=== PATIENT | male | born 1965 | race Caucasian/White ===

== ENCOUNTER 2022-10-16 22:07 | Inpatient (IN) | payer OTHER ==
--- OUTSIDE RECORDS SUMMARY | 2022-10-16 22:10 | XMS REPORT | Continuity of Care Document ---
:1965 Author Organization [facility] t Address [address] [place] [address] [place] [id number] Care Team Providers Name Role Phone Julia Sandoval Attending Clinician Unavailable Problems This patient has no known problems. Allergies, Adverse Reactions, Alerts This patient has no known allergies or adverse reactions. Medications This patient has no known medications. Procedures This patient has no known procedures. Encounters Start End Encounter Admission Attending Care Care Encounter Source Date/Time Date/Time Type Type Clinicians Facility Department ID 2022-09-24 Outpatient GAGAN Sandoval [facility] [id number] Common 08:35:00 Julia [id number] [facility] Results This patient has no known results.
[2022-10-16 23:27] LABS: Urine Blood Trace-intact (Negative); Urine Glucose Negative (Negative); Urine Protein Trace (Negative); Urine pH 5.5 (5.0-7.0)
[2022-10-16 23:36] LABS: Protime INR 1.08
[2022-10-16] MEDS ORDERED: NA CHLORIDE 0.9% 500 ML ONE (23:43)
[2022-10-16 23:51] LABS: Urine Bacteria None Seen /HPF (<20); Urine Bilirubin NEGATIVE (Negative); Urine Blood Negative (Negative); Urine Clarity Clear (Clear); Urine Color Light-Yellow (Yellow); Urine Glucose NEGATIVE (Negative); Urine Mucus 1+ /HPF (None Seen); Urine Protein TRACE (Negative); Urine RBC None Seen /HPF (None Seen); Urine Urobilinogen Normal (Normal)
[2022-10-16 23:51] LABS: Albumin 3.4 g/dL (3.4-5.0); Bilirubin Total 0.8 mg/dL (0.2-1.0); Potassium 3.8 mmol/L (3.5-5.1); Protein, Total 6.4 g/dL (6.4-8.2); Thyroid Stimulating Hormone 2.36 uIU/mL (0.358-3.740); Troponin High Sensitivity 6.2 pg/mL (<58.9)
[2022-10-16 23:52] LABS: Absolute Lymphocytes (CBC) 1.4 K/uL (0.7-4.9); Hematocrit 40.2 % (39.6-49.0); Lymphocytes % 11.7 % (15.3-44.8); MCV 91.3 fL (80-100)
[2022-10-16 23:52] LABS: Specific Gravity > 1.030 (1.005-1.030)
[2022-10-17] LABS: Barbiturates NEGATIVE (NEGATIVE); Benzodiazepines NEGATIVE (NEGATIVE); Cocaine NEGATIVE (NEGATIVE); METHAMPHETAM NEGATIVE (NEGATIVE); Methadone NEGATIVE (NEGATIVE); Opiates NEGATIVE (NEGATIVE); Phencyclidine NEGATIVE (NEGATIVE); THC Cannibis NEGATIVE (NEGATIVE)
--- NOTE | 2022-10-17 00:15 | EDPHYS ---
Physician Documentation [facility] Name: Joe Trent Age: 57 yrs Sex: Male : 1965 Arrival Date: 10/16/2022 Time: 22:08 Bed 3 Private MD: ED Physician Murray Bills HPI: 10/17 00:06 This 57 yrs old Male presents to ER via Ambulatory with complaints of Memory bs3 Loss. 00:06 57-year-old male history of alcohol abuse but per his friend of 20 years he has been bs3 sober for at least 5 years presents with generalized weakness since Friday afternoon and confusion. The patient is unable to provide a history and most of the history is provided for by his friend who notes that they went to lunch on Friday and he was himself however he received a call from the patient's parents who noted that the patient was confused today he spoke with the patient and he was confused and therefore went to see him and come to the hospital today patient is only employed and normally a very sharp but currently cannot provide a history he thinks that he is in the dentist office his friend notes that last week he went for routine care such as a colonoscopy and to see an ENT he did take an unknown medication last week he is not sure what it is the friend denies any drug use for the patient denies any toxic exposures or anything else. Historical: - Allergies: 03:55 unknown; kl - Home Meds: 03:55 unknown [Active]; kl - PMHx: 03:55 Alcoholism; kl - PSHx: 03:55 colonoscopyy; kl - Immunization history:: Adult Immunizations up to date. - Social history:: Smoking status: Patient denies any tobacco usage or history of. ROS: 00:06 Constitutional: Negative for fever, chills bs3 00:06 Unable to obtain ROS due to altered mental status. Exam: 00:06 Constitutional: This is a well developed, well nourished patient who is awake, alert, bs3 and in no acute distress. Head/Face: Normocephalic, atraumatic. Eyes: Pupils equal round and reactive to light, extra-ocular motions intact. Lids and lashes normal. pupils small but reactive, eom intact ENT: mmm, no posterior phyarngeal erythema Neck: Trachea midline, no thyromegaly, no neck stiffness Chest/axilla: Normal chest wall appearance and motion. Nontender with no deformity. No lesions are appreciated. Cardiovascular: Regular rate and rhythm with a normal S1 and S2. symmetric pulses in upper extremities Respiratory: Lungs have equal breath sounds bilaterally, clear to auscultation, no respiratory distress Abdomen/GI: Soft, non-tender, no rebound or guarding Back: No spinal tenderness. No costovertebral tenderness. Full range of motion. Skin: Warm, dry with normal turgor. Normal color with no rashes, no lesions, and no evidence of cellulitis. MS/ Extremity: normal Neuro: Motor 4/5 strength in his bilateral upper extremities and lower extremities, where he has he thinks he is at dentist office he is unable to recall the events of the last several days he denies anything bothering him he has good reflexes bilaterally and has patella tendon Psych: Awake, alert, with orientation to person, place and time. Behavior, mood, and affect are within normal limits. 00:15 Radiologist reports: neg bs3 Vital Signs: 10/16 22:15 BP 150 / 77; Pulse 92; Resp 16; Temp 98.8(TE); Pulse Ox 98% on R/A; Weight 74.84 kg; kd3 23:05 BP 140 / 80; Pulse 87; Resp 18; Pulse Ox 98% ; mb9 10/17 00:00 BP 148 / 85; Pulse 81; Resp 13; Pulse Ox 98% on R/A; ll3 01:00 BP 128 / 62; Pulse 80; Resp 17; Pulse Ox 97% on R/A; ll3 02:00 BP 144 / 46; Pulse 78; Resp 18; Pulse Ox 96% on R/A; ll3 03:00 BP 140 / 75; Pulse 77; Resp 15; Pulse Ox 96% on R/A; ll3 NIH Stroke Scale Scores: 10/16 22:40 NIHSS Score: 3 mb9 10/17 00:30 NIHSS Score: 9 kl MDM: 10/16 22:32 Patient medically screened. bs3 10/17 00:11 Differential diagnosis: CVA, metabolic disorder, drug effects, Medication induced, bs3 thyroid dysfunction patient could have used steroids and this is a weird presentation of steroid-induced psychosis possible infectious process although patient is afebrile here without any focal deficits unlikely to be toxic given the reliable history reported by the patient's friend he does not appear to be intoxicated at this point in time. Data reviewed: vital signs, nurses notes, lab test result(s), finger stick glucose, cardiac enzymes, CBC, drug level(s), electrolytes, hepatic panel, urine drug screen. Historians other than the Patient: Friend: Patient is a poor historian. ED course: Will admit to their service for metabolic encephalopathy evaluation by neuro, serial exams. 00:13 Consideration of Admission/Observation Patient was admitted/placed on observation. bs3 Management of patient was discussed with the following: Hospitalist: accepts admission. Discussion of test interpretation with radiology: I had a discussion with radiology regarding a test interpretation. no ich. ED course: ct neg for ich as read by myself. 00:13 ED course: considered infectious process such as meningitis/encephalitis but pt bs3 afebrile, no rash or other signs of acute infectious process. 03:50 Data reviewed: EKG, ecg nsr [address] elevation or depression qtc 406. Independent bs3 interpretation of the following test(s) in the Emergency Department EKG: See my EKG interpretation above CT Scan: My interpretation is no ich. 10/16 22:30 Order name: Glucose, Ancillary Testing; Complete Time: 23:35 EDMS 10/16 22:31 Order name: CBC with Diff; Complete Time: 00:03 3 10/16 22:31 Order name: High Sensitivity Troponin; Complete Time: 00:03 3 10/16 22:31 Order name: Protime (+inr); Complete Time: 00:03 3 10/16 22:31 Order name: Ptt, Activated; Complete Time: 00:03 3 10/16 22:31 Order name: TSH; Complete Time: 00:03 bs3 10/16 22:31 Order name: Comprehensive Metabolic Panel; Complete Time: 00:03 3 10/16 22:31 Order name: UA; Complete Time: 00:03 3 10/16 23:26 Order name: CREATININE WHOLE BLOOD; Complete Time: 23:35 EDMS 10/16 23:28 Order name: SARS RAPID; Complete Time: 00:16 10/16 23:28 Order name: Urine Dipstick-Ancillary; Complete Time: 23:35 EDMS 10/16 23:34 Order name: UDS; Complete Time: 00:03 bs3 10/17 00:25 Order name: Alcohol Serum/Plasma; Complete Time: 04:38 EDMS 10/17 00:25 Order name: Ammonia; Complete Time: 04:38 EDMS 10/16 22:31 Order name: Stroke CXR 1 View bs3 10/16 22:31 Order name: EKG; Complete Time: 22:32 bs3 10/16 22:31 Order name: Accucheck; Complete Time: 22:38 bs3 10/16 22:31 Order name: Cardiac monitoring; Complete Time: 23:05 bs3 10/16 22:31 Order name: EKG - Nurse/Tech; Complete Time: 23:05 bs3 10/16 22:31 Order name: IV Saline Lock; Complete Time: 22:37 bs3 10/16 22:31 Order name: Labs collected and sent; Complete Time: 23:05 bs3 10/16 22:31 Order name: NPO; Complete Time: 22:37 bs3 10/16 22:31 Order name: O2 Per Protocol; Complete Time: 23:05 3 10/16 22:31 Order name: CT Head Angio 3 10/16 22:31 Order name: CT Neck Angio 3 10/16 22:32 Order name: Ct Stroke Brain Wo Cont EDTX 10/16 22:31 Order name: O2 Sat Monitoring; Complete Time: 23:05 bs3 Administered Medications: 10/16 23:44 Drug: NS 0.9% 500 ml Route: IV; Rate: 1000 ml/hr; Site: right antecubital; 9 10/17 00:16 Follow up: Response: No adverse reaction; IV Status: Completed infusion mb9 :25 Drug: Tylenol 1000 mg Route: PO; 3 01:48 Drug: Ketorolac 30 mg Route: IVP; Site: right antecubital; kl Disposition Summary: 10/17/22 00:14 Hospitalization Ordered Hospitalization Status: Inpatient Admission bs3 Provider: Servando Leonardo bs3 Condition: Fair bs3 Problem: new bs3 Symptoms: are unchanged bs3 Bed/Room Type: Standard bs3 Location: Telemetry/MedSurg (Inpatient)(10/17/22 07:37) dw Room Assignment: [facility](10/17/22 07:37) dw Diagnosis - Metabolic encephalopathy bs3 Forms: - Medication Reconciliation Form bs3 - SBAR form bs3 NIH Stroke Scale - NIH Stroke Score Date: 10/16/2022 Time: 22:40 Total Score = 3 1a. Level of Consciousness (LOC) - 0(Alert) 1b. Level of Consciousness (LOC) (Month \T\ Age) - 1(One) 1c. LOC Commands (Open \T\ Closes Eyes/Mulcher Operator) - 0(Both) 2. Best Gaze (Lateral Gaze Paresis) - 0(Normal) 3. Visual Field Loss - 0(No visual loss) 4. Facial Palsy - 0(Normal) 5a. Left Arm: Motor (10-second hold) - 0(No drift) 5b. Right Arm: Motor (10-second hold) - 0(No drift) 6a. Left Leg: Motor (5-second hold - always test supine) - 1(Drift) 6b. Right Leg: Motor (5-second hold - always test supine) - 1(Drift) 7. Limb Ataxia (finger/nose \T\ heel/silverio - test with eyes open) - 0(Absent) 8. Sensory Loss (pinprick arms/legs/face) - 0(Normal) 9. Best Language: Aphasia (description/naming/reading) - 0(No aphasia) 10. Dysarthria (speech clarity - read or repeat words) - 0(Normal) 11. Extinction and Inattention (visual/tactile/auditory/spatial/personal) - 0(No abnormality) Initials: mb9 NIH Stroke Scale - NIH Stroke Score Date: 10/17/2022 Time: 00:30 Total Score = 9 1a. Level of Consciousness (LOC) - 0(Alert) 1b. Level of Consciousness (LOC) (Month \T\ Age) - 1(One) 1c. LOC Commands (Open \T\ Closes Eyes/Mulcher Operator) - 0(Both) 2. Best Gaze (Lateral Gaze Paresis) - 0(Normal) 3. Visual Field Loss - 0(No visual loss) 4. Facial Palsy - 0(Normal) 5a. Left Arm: Motor (10-second hold) - 0(No drift) 5b. Right Arm: Motor (10-second hold) - 0(No drift) 6a. Left Leg: Motor (5-second hold - always test supine) - 2(Drift, some effort against gravity) 6b. Right Leg: Motor (5-second hold - always test supine) - 2(Drift, some effort against gravity) 7. Limb Ataxia (finger/nose \T\ heel/silverio - test with eyes open) - 2(Present in two limbs) 8. Sensory Loss (pinprick arms/legs/face) - 0(Normal) 9. Best Language: Aphasia (description/naming/reading) - 1(Mild to moderate aphasia) 10. Dysarthria (speech clarity - read or repeat words) - 1(Mild to Moderate) 11. Extinction and Inattention (visual/tactile/auditory/spatial/personal) - 0(No abnormality) Initials: kl Signatures: Dispatcher [employer] EDMS Iveth Hernandez, RN RN Ivette Anderson RN RN Stefany Downey RN Henry Nolasco RN RN ll3 Rasheeda Rees RN RN kd3 Murray Bills MD MD bs3 Glory Acevedo PAHany PAHany sb4 Kaylynn Gonzalez RN RN mb9 Corrections: (The following items were deleted from the chart) 10/16 22:37 22:32 CT-STROKE BRAIN W/O CONTRAST+CT.RAD.BRZ ordered. EDTX EDMS 10/17 01:06 00:14 Telemetry/MedSurg (Inpatient) bs3 cg 01: 00:14 bs3 cg 07:37 01:06 [facility] ER HOLD cg dw 07:37 01:06 ERHOLD- cg dw
--- NOTE | 2022-10-17 00:15 | ER ---
Nurse's Notes [facility] Name: Joe Trent Age: 57 yrs Sex: Male : 1965 Arrival Date: 10/16/2022 Time: 22:08 Bed 3 Private MD: Diagnosis: Metabolic encephalopathy Presentation: 10/16 22:15 Chief complaint: Patient states: I haven't eaten in two days. I am not sure what is kd3 wrong. I can not even figure out what I am doing. I have been feeling a bit confused for about 3 days Friend and/or Co-Worker states: His mom and dad called me and said that he was on the phone and wasn't making much sense. Coronavirus screen: Vaccine status: Patient reports receiving the 2nd dose of the covid vaccine. Ebola Screen: No symptoms or risks identified at this time. Initial Sepsis Screen: Does the patient meet any 2 criteria? No. Patient's initial sepsis screen is negative. Does the patient have a suspected source of infection? No. Patient's initial sepsis screen is negative. Risk Assessment: Do you want to hurt yourself or someone else? Patient reports no desire to harm self or others. Onset of symptoms was October 16, 2022. 22:15 Method Of Arrival: Ambulatory kd3 22:15 Acuity: PRABHAKAR 3 kd3 10/17 04:43 Note pt awake alert ambulated to bathroom without difficulty oriented to name age gait kl steady. Triage Assessment: 10/16 22:15 General: Appears uncomfortable, Behavior is calm, cooperative. Pain: Denies pain. kd3 22:15 The onset of the patients symptoms was October 13, 2022 at 12:00. kl 23:00 Neuro: Reports headache. kl Historical: - Allergies: 10/17 03:55 unknown; kl - Home Meds: 03:55 unknown [Active]; kl - PMHx: 03:55 Alcoholism; kl - PSHx: 03:55 colonoscopyy; kl - Immunization history:: Adult Immunizations up to date. - Social history:: Smoking status: Patient denies any tobacco usage or history of. Screenin/25 23:06 [facility] ED Fall Risk Assessment (Adult) History of falling in the last 3 months, mb9 including since admission No falls in past 3 months (0 pts) Confusion or Disorientation Yes (5 pts) Intoxicated or Sedated No (0 pts) Impaired Gait Yes (1 pt) Mobility Assist Device Used No (0 pt) Altered Elimination No (0 pt) Score/Fall Risk Level 3 or more points = High Risk Oriented to surroundings, Maintained a safe environment, Educated pt \T\ family on fall prevention, incl call for assistance when getting out of bed. 23:15 Patient has been NPO before screening. The patient is alert, able to follow commands. kl The patient is exhibiting difficulty speaking. The patient does not exhibit difficulty understanding words. The patient is able to swallow own secretions with no drooling or need for suction. Patient tolerated one teaspoon of water. No drooling, immediate coughing, gurgling, or clearing of the throat was noted. The patient tolerated 90mL of water. No drooling, immediate coughing, gurgling, or clearing of the throat was noted. The patient passed the bedside swallow screening. Oral medications may be given as ordered. Contact Physician for further diet orders. 10/17 00:15 Abuse screen: Denies threats or abuse. Nutritional screening: No deficits noted. kl Tuberculosis screening: No symptoms or risk factors identified. Assessment: 10/16 22:15 TNKase (Tenecteplase) Screening: Contraindications: Patient reports onset of signs and ll3 symptoms of stroke greater than 6 hours ago: Yes. 22:29 Reassessment: pt taken to CT via wheelchair. mb9 23:00 General: Appears in no apparent distress. Pain: Complains of pain in chest Pain does mb9 not radiate. Pain currently is 5 out of 10 on a pain scale. Quality of pain is described as pressure, Pain began suddenly. Neuro: Dejesus Agitation-Sedation Scale (RASS): 0 - Alert and Calm Level of Consciousness is awake, confused, Oriented to person, place, Shop Router are equal bilaterally Moves all extremities. Gait is steady, Speech delayed. Facial symmetry appears normal, Pupils are non-reactive, pinpoint, Intact. 23:00 Neuro: bilateral lower extremity drift noted . Cardiovascular: Heart tones S1 S2 mb9 present Capillary refill < 3 seconds is brisk Patient's skin is warm and dry. Rhythm is regular. Respiratory: Airway is patent Respiratory effort is even, unlabored, Respiratory pattern is regular, symmetrical, Breath sounds are clear bilaterally. GI: Abdomen is flat, non-distended, Bowel sounds present X 4 quads. : No signs and/or symptoms were reported regarding the genitourinary system. EENT: No signs and/or symptoms were reported regarding the EENT system. Derm: Skin is intact, Skin is clammy, Skin is normal, Skin temperature is warm. Musculoskeletal: Range of motion: intact in all extremities. 23:15 Patient has been NPO before screening. The patient is alert, and able to follow kl commands. The patient does not exhibit slurred or garbled speech. The patient is exhibiting difficulty speaking. The patient is exhibiting difficulty understanding words. The patient is able to swallow own secretions with no drooling or need for suction. Patient tolerated one teaspoon of water. No drooling, immediate coughing, gurgling, or clearing of the throat was noted. The patient passed the bedside swallow screening. Oral medications may be given as ordered. Contact Physician for further diet orders. 10/17 00:00 Reassessment: No changes from previously documented assessment. Patient and/or family kl updated on plan of care and expected duration. Pain level reassessed. Patient is alert, oriented x 3, equal unlabored respirations, skin warm/dry/pink. Neuro: Level of Consciousness is awake, alert, confused, Oriented to person, place, Shop Router are equal bilaterally Moves all extremities. Gait is steady, Speech slow. Facial symmetry appears normal, Pupils are pinpoint, Intact. 00:30 VAN Scoring: Arm Drift: Patients demonstrates NO arm weakness. Patient is VAN Negative. Visual Disturbance: No visual disturbance noted. Aphasia: Expressive aphasia noted. Provider notified of +VAN scoring. Neglect: No neglect noted. Vital Signs: 10/16 22:15 BP 150 / 77; Pulse 92; Resp 16; Temp 98.8(TE); Pulse Ox 98% on R/A; Weight 74.84 kg; kd3 23:05 BP 140 / 80; Pulse 87; Resp 18; Pulse Ox 98% ; mb9 10/17 00:00 BP 148 / 85; Pulse 81; Resp 13; Pulse Ox 98% on R/A; ll3 01:00 BP 128 / 62; Pulse 80; Resp 17; Pulse Ox 97% on R/A; ll3 02:00 BP 144 / 46; Pulse 78; Resp 18; Pulse Ox 96% on R/A; ll3 03:00 BP 140 / 75; Pulse 77; Resp 15; Pulse Ox 96% on R/A; ll3 NIH Stroke Scale Scores: 10/16 22:40 NIHSS Score: 3 mb9 10/17 00:30 NIHSS Score: 9 ED Course: 10/16 22:08 Patient arrived in ED. ja2 22:15 Arm band placed on left wrist. kd3 22:20 Triage completed. kd3 22:24 Murray Bills MD is Attending Physician. bs3 22:25 Kaylynn Gonzalez RN is Primary Nurse. mb9 22:35 Inserted saline lock: 18 gauge in right antecubital area, using aseptic technique. mb9 22:36 Ct Stroke Brain Wo Cont In Process Unspecified. EDMS 22:53 CT Head Angio In Process Unspecified. EDMS 22:53 CT Neck Angio In Process Unspecified. EDMS 22:55 Placed in gown. Bed in low position. Call light in reach. Side rails up X 1. Client mb9 placed on continuous cardiac and pulse oximetry monitoring. NIBP monitoring applied. campus monitor on. 23:00 EKG done, by ED staff, reviewed by Murray Bills MD. mb9 23:05 CBC with Diff Sent. mb9 23:05 High Sensitivity Troponin Sent. mb9 23:05 Protime (+inr) Sent. mb9 23:05 Ptt, Activated Sent. mb9 23:14 No provider procedures requiring assistance completed. mb9 23:28 Stroke CXR 1 View In Process Unspecified. EDMS 23:30 UA Sent. mb9 23:44 UDS Sent. mb9 10/17 00:14 Servando Leonardo is Hospitalizing Provider. bs3 03:45 Patient admitted, IV remains in place. kl 07:32 Report received from Yaz RN \T\ IAN Millan. stated the client swallows without kc6 difficulty. Administered Medications: 10/16 23:44 Drug: NS 0.9% 500 ml Route: IV; Rate: 1000 ml/hr; Site: right antecubital; mb9 10/17 00:16 Follow up: Response: No adverse reaction; IV Status: Completed infusion mb9 : Drug: Tylenol 1000 mg Route: PO; ll3 01:48 Drug: Ketorolac 30 mg Route: IVP; Site: right antecubital; Medication: 10/16 23:07 VIS not applicable for this client. mb9 Outcome: 10/17 00:14 Decision to Hospitalize by Provider. bs3 03:44 Admitted to ER Hold. Please see [facility] for further documentation. 03:44 Condition: unchanged 03:44 Discharge instructions given to patient, Instructed on the need for admit, Demonstrated understanding of instructions. 08:54 Patient left the ED. kc6 NIH Stroke Scale - NIH Stroke Score Date: 10/16/2022 Time: 22:40 Total Score = 3 1a. Level of Consciousness (LOC) - 0(Alert) 1b. Level of Consciousness (LOC) (Month \T\ Age) - 1(One) 1c. LOC Commands (Open \T\ Closes Eyes/Qa Engineer) - 0(Both) 2. Best Gaze (Lateral Gaze Paresis) - 0(Normal) 3. Visual Field Loss - 0(No visual loss) 4. Facial Palsy - 0(Normal) 5a. Left Arm: Motor (10-second hold) - 0(No drift) 5b. Right Arm: Motor (10-second hold) - 0(No drift) 6a. Left Leg: Motor (5-second hold - always test supine) - 1(Drift) 6b. Right Leg: Motor (5-second hold - always test supine) - 1(Drift) 7. Limb Ataxia (finger/nose \T\ heel/silverio - test with eyes open) - 0(Absent) 8. Sensory Loss (pinprick arms/legs/face) - 0(Normal) 9. Best Language: Aphasia (description/naming/reading) - 0(No aphasia) 10. Dysarthria (speech clarity - read or repeat words) - 0(Normal) 11. Extinction and Inattention (visual/tactile/auditory/spatial/personal) - 0(No abnormality) Initials: mb9 NIH Stroke Scale - NIH Stroke Score Date: 10/17/2022 Time: 00:30 Total Score = 9 1a. Level of Consciousness (LOC) - 0(Alert) 1b. Level of Consciousness (LOC) (Month \T\ Age) - 1(One) 1c. LOC Commands (Open \T\ Closes Eyes/Qa Engineer) - 0(Both) 2. Best Gaze (Lateral Gaze Paresis) - 0(Normal) 3. Visual Field Loss - 0(No visual loss) 4. Facial Palsy - 0(Normal) 5a. Left Arm: Motor (10-second hold) - 0(No drift) 5b. Right Arm: Motor (10-second hold) - 0(No drift) 6a. Left Leg: Motor (5-second hold - always test supine) - 2(Drift, some effort against gravity) 6b. Right Leg: Motor (5-second hold - always test supine) - 2(Drift, some effort against gravity) 7. Limb Ataxia (finger/nose \T\ heel/silverio - test with eyes open) - 2(Present in two limbs) 8. Sensory Loss (pinprick arms/legs/face) - 0(Normal) 9. Best Language: Aphasia (description/naming/reading) - 1(Mild to moderate aphasia) 10. Dysarthria (speech clarity - read or repeat words) - 1(Mild to Moderate) 11. Extinction and Inattention (visual/tactile/auditory/spatial/personal) - 0(No abnormality) Initials: Signatures: Dispatcher [employer] EDIveth Valadez RN Aleta Pacheco Lynsea RN RN ll3 Rasheeda Rees RN RN kd3 Felicity Jones RN RN kc6 Murray Bills MD MD bs3 Kaylynn Gonzalez RN RN mb9 Corrections: (The following items were deleted from the chart) 06:46 10/16 22:15 TNKase (Tenecteplase) Screening: Indications: Treatment will start ll3 within 4.5 hours onset of symptoms: Yes. shaq 10/17 06:47 10/16 22:15 TNKase (Tenecteplase) Screening: Indications: Treatment will start ll3 within 4.5 hours onset of symptoms: Yes. ll3
[2022-10-17 00:16] LABS: SARS-CoV-2 Antigen Rapid Res Negative (Negative)
--- NOTE | 2022-10-17 00:41 | P.HP ---
Certification for Inpatient Patient admitted to: Inpatient With expected LOS: <2 Midnights Patient will require the following post-hospital care: None Practitioner: I am a practitioner with admitting privileges, knowledge of patient current condition, hospital course, and medical plan of care. Services: Services provided to patient in accordance with Admission requirements found in Title 42 Section 412.3 of the Code of Federal Regulations Patient History Date of Service: 10/17/22 Reason for admission: AMS History of Present Illness: Patient is a 57 year old male with no past medical history who presented to the emergency department with altered mental status. History was obtained from patient and his friend. Patient states that he has not eaten much over the past 3 days and has had some difficulty remembering things. Friend states that he was with him 2 days ago and he was acting appropriately. Family was speaking on the phone with him today and noticed he was acting abnormally. Friend reports that he used to drink alcohol but has not drank in 5 years. Patient apparently had a colonoscopy and saw an ENT last week for routine reasons. Labs/imaging in the emergency department were negative. Head CT negative, UDS negative. He can tell you his name, (excluding year), and believes he is at the Dentist's office. 4/5 strength in all 4 extremities. Reflexes intact. Pupils pinpoint bilaterally. ED provider wishes to admit patient for further workup of altered mental status. Allergies codeine [Codeine] Allergy (Verified 07/09/12 09:34) Nausea/Vomiting Home medications list reviewed: Yes - Past Medical/Surgical History Diabetic: No Past Medical History: Patient denies medical history Past Surgical History: Patient denies surgical history Psychosocial/ Personal History: Patient lives at home alone. 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 - Family History Family History: Reviewed- Non-Contributory - Social History Smoking Status: Never smoker Alcohol use: No CD- Drugs: No Caffeine use: Yes Place of Residence: Home Review of Systems General: Other (Headache) Neurological: Confusion Physical Examination - Vital Signs Temperature: 98.8 F Blood Pressure: 140/80 Pulse: 87 Respirations: 18 Pulse Ox (%): 98 - Physical Exam General: In no apparent distress, Oriented x2 HEENT: Atraumatic, Normocephalic, Other (Pinpoint pupils bilaterally) Neck: Supple, 2+ carotid pulse no bruit Respiratory: Clear to auscultation bilaterally, Normal air movement Cardiovascular: No edema, Normal pulses, Regular rate/rhythm Gastrointestinal: Normal bowel sounds, Soft and benign, Non-distended Musculoskeletal: No swelling, No contractures Integumentary: No rashes, No breakdown Neurological: Normal gait, Normal speech, Sensation intact, Abnormal strength, Abnormal affect (Flat) - Studies Laboratory Data (last 24 hrs) 10/16/22 22:45: PT 11.9, INR 1.08, APTT 26.3 10/16/22 22:45: Sodium 132 L, Potassium 3.8, BUN 14, Creatinine 0.90, Glucose 117 H, Total Bilirubin 0.8, AST 10 L, ALT 22, Alkaline Phosphatase 52 10/16/22 22:45: WBC 11.70 H, Hgb 13.6, Hct 40.2, Plt Count 224 Assessment and Plan - Problems (Diagnosis) (1) AMS (altered mental status) Current Visit: Yes Status: Acute Qualifiers: Altered mental status type: unspecified Qualified Code(s): R41.82 - Altered mental status, unspecified - Plan Patient is admitted for further management of AMS. He is complaining of severe headache behind the left eye unresolved by tylenol. No changes in vision. Patient remains confused with flat affect and bilateral pinpoint but reactive pupils. 4/5 strength in all 4 extremities. No focal/unilateral deficits. Speech normal. MRI brain ordered as well as neurology consult. UDS, head CT negative, head/neck CTA negative. Check ammonia and etoh level. Patient may require LP. Frequent neurologic checks. IV hydration with banana bag. Discharge Plan: Home Plan to discharge in: 48 Hours - Advance Directives Does patient have a Living Will: No Does patient have a Durable POA for Healthcare: No - Code Status/Comfort Care Code Status Assessed: Yes Code Status: Full Code Physician Review: Patient Assessed, Agree with Above Assessment and Plan Critical Care: No Time Spent Managing Pts Care (In Minutes): 50
[2022-10-17] MEDS ORDERED: ACETAMINOPHEN 500 MG TAB ONE (01:25)
[2022-10-17] MEDS ORDERED: KETOROLAC 30 MG/ML INJ ONE (01:48)
[2022-10-17] MEDS ORDERED: ONDANSETRON 4 MG/2 ML VIAL IV PRN (02:56)
[2022-10-17] MEDS ORDERED: MAGNESIUM SULFATE 1 gm IVPB 1 GM/100 ML BAG IV ONE ×2 (03:04→03:22)
[2022-10-17] MEDS ORDERED: DIPHENHYDRAMINE 50 MG/ML VIAL IV ONE (03:04)
[2022-10-17] MEDS ORDERED: NA CHLORIDE 0.9% 1,000 ML IV ONE (03:04)
[2022-10-17] MEDS ORDERED: METOCLOPRAMIDE 10 MG/2mL INJ ONE (03:21)
[2022-10-17] MEDS ORDERED: DIPHENHYDRAMINE 50 MG/ML VIAL ONE (03:22)
[2022-10-17] MEDS ORDERED: NA CHLORIDE 0.9% 1,000 ML ONE (03:22)
[2022-10-17] MEDS: METOCLOPRAMIDE 10 MG/2mL INJ IV SCH ×2 (03:30→22:19)
[2022-10-17 05:27] VITALS: BMI 25.0
[2022-10-17] MEDS ORDERED: FOLIC ACID 1 MG, MULTIVITAMINS INJ 10 ML, THIAMINE HCL 100 MG in NA CHLORIDE 0.9% 1,000 ML IV SCH (09:00)
[2022-10-17] MEDS: ENOXAPARIN 40 MG/0.4 ML SQ SCH (09:48)
[2022-10-17] MEDS: ACETAMINOPHEN 500 MG TAB PO PRN ×2 (11:33→23:35)
--- NOTE | 2022-10-17 11:39 | RAD REPORT ---
EXAM DESCRIPTION: ADDENDUM #1 Urgent finding reported to Dr. Bills at 10/16/2022 10:45 PM SCRAPER HAND Electronically signed by: Zach Hurley 10/17/2022 2:38 AM SCRAPER HAND End of Addendum EXAM DESCRIPTION: CT of the head without contrast CLINICAL HISTORY: Confusion, memory loss COMPARISON: None available TECHNIQUE: Axial CT of the head obtained from the skull apex to the skull base without contrast. Thi s exam was performed according to our departmental dose-optimization program, which includes automate d exposure control, adjustment of the mA and/or kV according to patient size and/or use of iterative reconstruction technique. FINDINGS: No acute intracranial hemorrhage identified. No mass, mass effect, shift of the midline, a bnormal extra-axial fluid collection or CT evidence of acute ischemic change identified. The ventricu lar system and sulcal spaces are age appropriate. Scattered areas of hypodensity throughout the sup ratentorial white matter are nonspecific and may be related to chronic small vessel ischemic change. The visualized paranasal sinuses and mastoid air cells are well aerated. No skull fracture identifi ed. Visualized orbits and globes are unremarkable. IMPRESSION: 1. No acute intracranial abnormality by CT criteria. Electronically signed by: Zach Hurley 10/16/2022 10:46 PM SCRAPER HAND Due to temporary technical issues with the PACS/Fluency reporting system, reports are being signed by the in house radiologists without review as a courtesy to insure prompt reporting. The interpreting radiologist is fully responsible for the content of the report.
--- NOTE | 2022-10-17 12:04 | RAD REPORT ---
EXAM DESCRIPTION: 1. CTA of the head with contrast. 2. CTA of the neck with contrast. CLINICAL HISTORY: 57 years, Male, Neuro deficit, acute, stroke suspected COMPARISON: None. TECHNIQUE: Axial CTA images of the head and neck obtained following the uncomplicated intravenous ad ministration of . 3-D/MIP reformatted images available. This exam was performed according to our depa rtmental dose-optimization program, which includes automated exposure control, adjustment of the mA a nd/or kV according to patient size and/or use of iterative reconstruction technique. FINDINGS: CTA head: In the anterior circulation, the intracranial internal carotid arteries have normal course. The inter nal carotid arteries bifurcate into patent A1 and M1 segments of the anterior and middle cerebral art eries respectively. No evidence of flow-limiting stenosis, aneurysm, occlusion, or dissection in the anterior circulation. The anterior communicating artery is patent. In the posterior circulation, the intracranial vertebral arteries combine to form a patent basilar ar ene. The basilar artery bifurcates into patent P1 segments of the posterior cerebral artery. No evid ence of stenosis, aneurysm, occlusion, or dissection in the posterior circulation. No definite acute intracranial abnormality identified. No acute abnormality of the osseous calvarium. Mucosal thickening of the paranasal sinuses. Mastoid air cells are well aerated.. CTA NECK: The aortic arch has normal anatomic configuration. The origin of the great vessels are patent. The right common carotid artery is patent and bifurcates into patent internal and external carotid ar teries. 0% stenosis by NASCET criteria. No evidence of occlusion or dissection. The left common carotid artery is patent and bifurcates into patent internal and external carotid art eries. 0% stenosis by NASCET criteria. No evidence of occlusion or dissection. The cervical vertebral arteries are patent throughout their course. No evidence of occlusion, stenosi s, or dissection. No definite acute abnormalities in the neck soft tissues. No apical pneumothorax. No acute osseous ab normalities. Mild endplate spondylosis of the spine. IMPRESSION: 1. No evidence of stenosis, occlusion, or aneurysm in the intracranial arterial circul ation. 2. No evidence of stenosis/occlusion involving the cervical carotid or vertebral arteries. Electronically signed by: Zach Hurley 10/16/2022 11:14 PM FINISHER TAILOR APPRENTICE Due to temporary technical issues with the PACS/Fluency reporting system, reports are being signed by the in house radiologists without review as a courtesy to insure prompt reporting. The interpreting radiologist is fully responsible for the content of the report.
--- NOTE | 2022-10-17 12:13 | RAD REPORT ---
EXAM DESCRIPTION: Chest Single View CLINICAL HISTORY: 57-year-old male with chest pain. TECHNIQUE: Single view, AP portable chest was obtained. COMPARISON: None. FINDINGS: Unremarkable cardiac and mediastinal silhouette. Heart size is normal. Low lung volumes with bilateral basilar opacity suggesting subsegmental atelectasis versus consolidat ion. No pneumothorax or pleural effusions. The visualized bones are within normal limits. IMPRESSION: Low lung volumes with bilateral basilar opacity suggesting subsegmental atelectasis vers us consolidation. Repeat upright radiography is recommended when the patient is clinically able. Electronically signed by: Zandra Lyons MD 10/16/2022 11:39 PM DAIRY FROZEN MANAGER Due to temporary technical issues with the PACS/Fluency reporting system, reports are being signed by the in house radiologists without review as a courtesy to insure prompt reporting. The interpreting radiologist is fully responsible for the content of the report.
--- NOTE | 2022-10-17 13:40 | RAD REPORT ---
EXAM DESCRIPTION: MRI - Brain W/Wo Cont - 10/17/2022 1:08 pm CLINICAL HISTORY: Alteration of consciousness/confusion COMPARISON: head CT October 16, 2022 TECHNIQUE: Axial, sagittal, and coronal magnetic images of the brain were obtained. 20 cc MultiHance administered intravenously FINDINGS: 6.5 x 1.8 centimeter area of abnormal signal left medial temporal lobe. There is minimal enhancement. Minimal abnormal signal right medial temporal lobe The ventricles are normal in caliber. Diffusion-weighted/ ADC mapping sequences do not demonstrate evidence of an acute infarction. An extra-axial fluid collection is not noted. Fluid within the sinuses/mastoids is not seen IMPRESSION: 6.5 centimeter area of abnormal signal medial left temporal lobe may indicate herpes enc ephalitis. Other considerations include viral and autoimmune encephalitis Minimal abnormal signal right medial temporal lobe Dr Alvarez notified
--- NOTE | 2022-10-17 15:26 | P.PN ---
Date of Service: 10/17/22 Patient seen and examined. Patient appears confused, inappropriate speech, does not seem to comprehend. MRI of the brain results reviewed-it report 6.5 centimeter area of abnormal signal medial left temporal lobe may indicate herpes encephalitis. Other considerations include viral and autoimmune encephalitis. Minimal abnormal signal right medial temporal lobe. Case discussed with Dr. Benjamin and he recommend treatment for HSV encephalitis with IV acyclovir, Lumbar puncture with CSF studies including HSV PCR. Dr. Shipley to follow. Neurochecks.
[2022-10-17] MEDS: ACYCLOVIR INJ 800 MG in NA CHLORIDE 0.9% 100 ML IVPB SCH (17:12)
[2022-10-17] MEDS: OXYCODONE HCL 5 MG TAB PO PRN (20:20)
[2022-10-17] MEDS: levETIRAcetam 500 MG TAB PO SCH (20:20)
[2022-10-18] MEDS: ACYCLOVIR INJ 800 MG in NA CHLORIDE 0.9% 100 ML IVPB SCH ×3 (00:53→16:18)
--- NOTE | 2022-10-18 01:04 | CON ---
Reason For Consultation: Consultation called because of altered mental status. History Of Present Illness: Mr. Trent is a 57-year-old right-handed patient with no signi ficant past medical history who per friends and family has been behaving very unusually over the last s 2 or 3 days. The patient was not able to give any coherent history and history obtained by alley alexandre and the hospitalist who spoke with family. Reportedly while he was on the phone with family, h e did not make sense. He was talking in a very nonsensical manner and could not follow instructions well. He apparently responded to his mail appropriately, but then did not make more sense. The hosp italist did note that the patient apparently received multiple vaccines within a few weeks and has ray d these symptoms. There are no reported sick contacts. He has remote history of alcohol use, but no recent use and no IV drug use and no tobacco use. He was evaluated by head CT scan, which showed no acute ischemic hemorrhagic changes. However, brain MRI done earlier today identified a 6.5 x 1.8 cm area of abnormal signal in the left medial temporal lobe with minimal enhancement. The radiologist' s differential diagnosis did include a possible herpes encephalitis or other viral or autoimmune ence phalitis. The right medial temporal lobe had minimal abnormal signal. After discussion and this fin ding of the hospitalist, the patient was started on acyclovir, he was receiving 800 mg every 8 hours. He has also been started on Keppra 500 mg twice daily for the possibility of ongoing disruptive sei zure activity. He is receiving folic acid along with Tylenol and Zofran. Past Medical History: As noted above. The patient has not had any significant past medical history. Allergies: CODEINE. Medications: At home are none regularly. 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 In terms of a lcohol use, remote alcohol use. No IV drug use and no tobacco use. Review of Systems: Unable to give a coherent review of systems at this point. Physical Examination: Vital Signs: Blood pressure 135/74, pulse 78, respiratory rate 16, temperature 98.4, and oxygen satu ration 98%. Weight 165 pounds, height 5 feet 8, BMI 25.1. Neurologic: Mr. Trent was walking around the room at the time I went to evaluate him. He was able to get to bed. He seems very confused about any questions asked, very slow to respond, and would onl y follow commands when repeatedly encourage and when shown examples. For instance, when asked to giv e the thumbs up sign, he could not do it. He held up his hand to shake the hand, but once a thumbs u p sign was shown to him, he was able to do that and he eventually was able to cross the midline to do an instruction to take the right index finger and touch the left ear with encouragement and mimickin g. Otherwise in terms of his cranial nerves, he has no obvious asymmetry in his face. His strength is fully tested, but he did not have any asymmetries and it is at least 4/5 proximally and distally i n the upper and lower extremities. He had no drift as his legs were lifted up and asked to be held i n place and the sensation is intact. Reflexes are symmetric. Coordination appeared intact. He is a febrile and does not have nuchal rigidity. He did walk without any loss of balance in terms of his g ait. Laboratory Studies: White blood cell count 11.7, hemoglobin 13.6, and platelets 224. Chemistries: Sodium 133, potassium 3.8, chloride 96, carbon dioxide 25, BUN 14, creatinine 0.9, AST 10, ALT 22, al kaline phosphatase 52, ammonia 19, and glucose 117. He is pending LP studies and a urine drug screen was negative. Serum alcohol level was less than 10. He has some immune studies pending. COVID-19 test is negative. Assessment: Mr. Trent is a 57-year-old patient who appears to be encephalopathic. He does not quit e appear to be toxic or infectious, although it is quite possible, but may be source of his findings on the left temporal lobe can be contributing factor to his encephalopathy. At this point, he is on acyclovir for possible herpes encephalitis. He is also on Keppra to reduce the risk of seizures. Plan: 1.Continue with acyclovir and Keppra. 2.When possible, repeat EEG may be helpful. LB/MODL Voice ID: [id number] Report ID: [id number]
[2022-10-18] MEDS: OXYCODONE HCL 5 MG TAB PO PRN (03:27)
[2022-10-18] MEDS: ENOXAPARIN 40 MG/0.4 ML SQ SCH (09:15)
[2022-10-18] MEDS: ACETAMINOPHEN 500 MG TAB PO PRN ×2 (09:15→20:15)
[2022-10-18] MEDS: levETIRAcetam 500 MG TAB PO SCH ×2 (09:16→20:15)
[2022-10-18 13:12] LABS: CSF Glucose 57 mg/dL (40-70)
--- NOTE | 2022-10-18 13:20 | EKG ---
Test Date: 2022-10-16 Test Time: 23:00:34 Med Surg Nurse: MB MEASUREMENT RESULTS: Intervals: Rate: 83 CA: 140 QRSD: 88 QT: 346 QTc: 406 [place]: P: 73 CA: 140 QRS: 52 T: 68 INTERPRETIVE STATEMENTS: Normal sinus rhythm Normal ECG Compared to ECG 10/20/2013 18:21:51 Left ventricular hypertrophy no longer present Electronically Signed On 10-18-22 13:16:30 KNIT TUBING DYER by Gil Rubalcava
--- NOTE | 2022-10-18 13:32 | RAD REPORT ---
EXAM DESCRIPTION: RAD - Lumbar Puncture For Dx - 10/18/2022 12:46 pm CLINICAL HISTORY: Low-grade fever, AMS COMPARISON: None. TECHNIQUE: The procedure, risks and alternatives to the procedure were discussed with the patient's family member in detail. After answering all questions, both oral and written consent were obtained. Patient was unable to give consent himself due to altered mental status. Time-out procedure was perf ormed. The patient was placed in an oblique prone position on the fluoroscopic table. The skin of the lower back was prepped and draped in the usual sterile fashion. After anesthetizing the skin and deeper sof t tissues with 1% lidocaine, a 22 gauge needle was advanced into the thecal sac at the L3 level. Intrathecal placement was confirmed. Clear colorless CSF was observed. Approximately 9 mL of CSF obta ined for requested laboratory studies. At the conclusion of the procedure, the needle was withdrawn and a sterile bandage placed over the pu ncture site. The patient tolerated the procedure well without immediate complications. Patient was transferred back to the floor for continued care. IMPRESSION: Successful fluoroscopic guided lumbar puncture. All obtained fluid was sent to the lab for studies requested by the referring physician.
[2022-10-18 13:59] LABS: Body Fluid Source CSF; Color of fluid Colorless (COLORLESS)
[2022-10-18 14:00] LABS: Appearance CLEAR (CLEAR)
[2022-10-18 14:05] LABS: Body Fluid WBC 95 /mm^3
--- NOTE | 2022-10-18 15:50 | P.PN ---
Subjective Date of Service: 10/18/22 Chief Complaint: AMS Patient attempting to comprehend conversation. States his headache is better. No recorded fever. No reported weakness Physical Examination - Vital Signs Temperature: 98.6 F Blood Pressure: 148/72 Pulse: 82 Respirations: 18 Pulse Ox (%): 98 Assessment And Plan - Current Problems (Diagnosis) (1) AMS (altered mental status) Current Visit: Yes Status: Acute Qualifiers: Altered mental status type: unspecified Qualified Code(s): R41.82 - Altered mental status, unspecified (2) Lesion of temporal lobe Current Visit: Yes Status: Acute - Plan Physical Exam General: In no apparent distress, Oriented x2 HEENT: Atraumatic, Normocephalic, CARMITA Neck: Supple, 2+ carotid pulse. Respiratory: Clear to auscultation bilaterally, Normal air movement Cardiovascular: No edema, Normal pulses, Regular rate/rhythm Gastrointestinal: Normal bowel sounds, Soft and benign, Non-distended Musculoskeletal: No swelling, No contractures Integumentary: No rashes, No breakdown Neurological: Normal gait, Normal speech, Sensation intact, no focal motor deficit. Plan: MRI of the brain: L temporal lobe lesion, no acute CVA CSF cell counts reviewed. Case discussed with Dr. Shipley. Significant findings include elevated CSF WBC, and protein. Autoimmune meningitis/aseptic meningitis is possible. Other CSF studies-CSF cytology, CSF anti-NMDAR, Serum autoimmune screen including anti-DS DNA ordered. Will obtain ESR. Continue IV acyclovir to cover HSV meningitis/encephalitis given temporal lobe involvement. Neurochecks. Supportive measures-pain management as needed. Follow CSF culture. CSF VDRL is is pending. No dysphagia. No cranial nerve palsy. No motor or sensory deficit but he has cognitive deficit. Diet as tolerated Neurology to follow.
[2022-10-19] MEDS: ACYCLOVIR INJ 800 MG in NA CHLORIDE 0.9% 100 ML IVPB SCH ×3 (00:14→11:49)
[2022-10-19 08:20] VITALS: TEMP 100.8
[2022-10-19] MEDS: levETIRAcetam 500 MG TAB PO SCH ×2 (09:00→09:23)
[2022-10-19] MEDS: ENOXAPARIN 40 MG/0.4 ML SQ SCH (09:24)
[2022-10-19] MEDS ORDERED: levETIRAcetam 1,000 MG in NA CHLORIDE 0.9% 100 ML IV SCH (09:45)
[2022-10-19] MEDS ORDERED: LORazepam 2 MG/ML VIAL ONE (09:48)
[2022-10-19] MEDS ORDERED: levETIRAcetam 1,000 MG in NA CHLORIDE 0.9% 100 ML IV ONE (09:57)
[2022-10-19] MEDS ORDERED: LORazepam 2 MG/ML VIAL IV ONE (10:00)
[2022-10-19] MEDS ORDERED: PHENYTOIN Inj 1,000 MG in NA CHLORIDE 0.9% 100 ML IV STA (10:02)
[2022-10-19] MEDS ORDERED: METHYLPRED NA SUC 1,000 MG in NA CHLORIDE 0.9% 100 ML IV SCH (10:15)
[2022-10-19] MEDS ORDERED: VANCOMYCIN 1.75 GM in NA CHLORIDE 0.9% 500 ML IVPB ONE (11:00)
[2022-10-19] MEDS ORDERED: CEFTRIAXONE 2,000 MG in NA CHLORIDE 0.9% 100 ML IV SCH (11:00)
--- NOTE | 2022-10-19 12:54 | P.PN ---
Subjective Date of Service: 10/19/22 Chief Complaint: AMS Patient had a seizure this morning that lasted more than 5-minute. Also noted to be febrile with temperature up to 102. Currently unresponsive. Physical Examination - Vital Signs Temperature: 100.8 F Blood Pressure: 146/72 Pulse: 86 Respirations: 21 Pulse Ox (%): 95 Assessment And Plan - Current Problems (Diagnosis) (1) AMS (altered mental status) Current Visit: Yes Status: Acute Qualifiers: Altered mental status type: unspecified Qualified Code(s): R41.82 - Altered mental status, unspecified (2) Lesion of temporal lobe Current Visit: Yes Status: Acute (3) Status epilepticus Current Visit: Yes Status: Acute (4) Meningoencephalitis Current Visit: Yes Status: Acute - Plan Physical Exam General: Unresponsive. HEENT: Atraumatic, Normocephalic, CARMITA Neck: Supple, no neck stiffness. Respiratory: Clear to auscultation bilaterally, Normal air movement Cardiovascular: No edema, Normal pulses, Regular rate/rhythm Gastrointestinal: Normal bowel sounds, Soft and benign, Non-distended Musculoskeletal: No swelling, No contractures Integumentary: No rashes, No breakdown Neurological: Unresponsive, withdraws all extremities to pain. Plan: MRI of the brain: L temporal lobe lesion, no acute CVA CSF cell counts reviewed-elevated WBC, mildly elevated protein Case discussed with Dr. Shipley. Autoimmune meningitis/aseptic meningitis suspected Other CSF studies-CSF cytology, CSF anti-NMDAR ordered Serum autoimmune screen including anti-DS DNA ordered are pending. Ativan IV 2 mg administered, followed by loading dose Keppra 1000 mg IV and loading dose Dilantin 1000 mg IV. Oral Keppra changed to IV Keppra 750 mg twice daily. Added Dilantin 100 mg IV every [address] Shipley recommended transfer to [facility]. Transfer to [facility] initiated, I spoke to [facility] neurology recommended also covering for bacterial meningitis. Patient started on IV Rocephin and vancomycin. Dr. Shipley also recommended high-dose steroids for possible autoimmune meningitis/encephalitis and for any possible temporal lobe edema. Patient started on IV Solu-Medrol 1 g daily. Continue IV acyclovir to cover HSV meningitis/encephalitis given temporal lobe involvement. Neurochecks. Supportive measures-pain management as needed. Follow CSF culture. CSF VDRL is pending, HIV screen is pending. Follow other CSF studies. Keep patient n.p.o. Patient transferred to ICU for close monitoring. He has been accepted for transfer to [facility] and then bed availability . Neurology to follow.
[2022-10-19 16:23] VITALS: O2SAT 97
[2022-10-19] MEDS ORDERED: PHENYTOIN NA 100 MG/2 ML IV SCH (17:00)
--- NOTE | 2022-10-19 18:14 | P.DS ---
Admission Date: 10/17/22 Discharge Date: 10/19/22 Disposition: TRANSFER TO [facility] Reason for Admission: AMS - Problems (1) AMS (altered mental status) Current Visit: Yes Status: Acute Qualifiers: Altered mental status type: unspecified Qualified Code(s): R41.82 - Altered mental status, unspecified (2) Lesion of temporal lobe Current Visit: Yes Status: Acute (3) Status epilepticus Current Visit: Yes Status: Acute (4) Meningoencephalitis Current Visit: Yes Status: Acute Brief History of Present Illness: Patient is a 57 year old male with no past medical history who presented to the emergency department with altered mental status. History was obtained from patient and his friend as patient could not provide any history. Friend stated that he was with him 2 days prior and he was acting appropriately. Family was speaking on the phone with him and noticed he was acting abnormally. Friend reports that patient used to drink alcohol but he has not drank in 5 years. Patient apparently had a colonoscopy and saw an ENT last week for routine reasons. He also received both her COVID-19 shots and flu shot 2 weeks prior. Labs/imaging in the emergency department were negative. Head CT negative, UDS negative. Patient admitted for further management of altered mental status. Hospital Course: Patient admitted to the medical floor MRI of the brain: L temporal lobe lesion, no acute CVA. Neurology consulted and recommended lumbar puncture. 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 Lumbar puncture performed. CSF cell counts reviewed-elevated WBC, mildly elevated protein Dr. 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 Other CSF studies-CSF cytology, CSF anti-NMDAR ordered Serum autoimmune screen including anti-DS DNA ordered are pending. Patient had a status epilepticus. Ativan IV 2 mg administered, followed by loading dose Keppra 1000 mg IV and loading dose Dilantin 1000 mg IV. This was followed by by IV Keppra 750 mg twice daily and Dilantin 100 mg IV every [address] Shipley recommended transfer to [facility]. Transfer to [facility] initiated, I spoke to [facility] neurology who also recommended covering for bacterial meningitis. Patient started on IV Rocephin and vancomycin. Dr. Shipley recommended high-dose steroids for possible autoimmune meningitis/encephalitis and for any possible temporal lobe edema and patient started on IV Solu-Medrol 1 g daily. CSF culture, CSF VDRL, HIV screen are pending. Other CSF send out studies also pending. He has been accepted for transfer to [facility] for further management. His vitals are stable for transfer. Vital Signs/Physical Exam: Temp Pulse Resp BP Pulse Ox 100.8 F 86 21 H 146/72 H 95 10/19/22 13:06 10/19/22 13:06 10/19/22 13:06 10/19/22 13:06 10/19/22 13:06 General: Unresponsive HEENT: Mucous membr. moist/pink Neck: Supple, JVD not distended Respiratory: Clear to auscultation bilaterally, Normal air movement Cardiovascular: No edema, Regular rate/rhythm, Normal S1 S2 Gastrointestinal: Soft and benign, Non-distended Musculoskeletal: No swelling Integumentary: No rashes Neurological: Normal strength at 5/5 x4 extr Laboratory Data at Discharge: WBC 11.70 K/uL (4.3-10.9) H 10/16/22 22:45 Hgb 13.6 g/dL (13.6-17.9) 10/16/22 22:45 Hct 40.2 % (39.6-49.0) 10/16/22 22:45 Plt Count 224 K/uL (152-406) 10/16/22 22:45 PT 11.9 SECONDS (9.5-12.5) 10/16/22 22:45 INR 1.08 10/16/22 22:45 APTT 26.3 SECONDS (24.3-36.9) 10/16/22 22:45 Sodium 132 mmol/L (136-145) L 10/16/22 22:45 Potassium 3.8 mmol/L (3.5-5.1) 10/16/22 22:45 BUN 14 mg/dL (7-18) 10/16/22 22:45 Creatinine 0.90 mg/dL (0.70-1.30) 10/16/22 22:45 Glucose 117 mg/dL (74-106) H 10/16/22 22:45 Total Bilirubin 0.8 mg/dL (0.2-1.0) 10/16/22 22:45 AST 10 U/L (15-37) L 10/16/22 22:45 ALT 22 U/L (16-61) 10/16/22 22:45 Alkaline Phosphatase 52 U/L (45-117) 10/16/22 22:45 Followup: NONE,NONE [Primary Care Provider] - Time spent managing pt's care (in minutes): 35
[2022-10-19 18:36] VITALS: BP 140/81
[2022-10-19] MEDS ORDERED: levETIRAcetam 750 MG in NA CHLORIDE 0.9% 100 ML IV SCH (21:00)
[2022-10-20] MEDS ORDERED: VANCOMYCIN 1.5 GM in NA CHLORIDE 0.9% 500 ML IVPB SCH (05:00)
[2022-10-21 13:08] LABS: HIV AG/AB 4TH GEN Non-reactive (Non-reactive)
== END 2022-10-19 18:45 | disposition short-term general hospital (02) | DRG 97 ==
LOC: ER 22:07 → ERHOLD 10-17 00:35 → 2ND 10-17 07:53 → 3RD-ICU 10-19 11:10
PROVIDERS: ADMIT Internal Medicine; ATTEND Internal Medicine
PROC: 009U3ZX Drainage of Spinal Canal, Percutaneous Approach, Diagnostic (ICD-10-PCS; principal; 2022-10-17)
DX: B00.4 Herpesviral encephalitis (principal); G93.41 Metabolic encephalopathy; G40.901 Epilepsy, unspecified, not intractable, with status epilepticus; R77.8 Other specified abnormalities of plasma proteins; Z60.2 Problems related to living alone; Z88.5 Allergy status to narcotic agent; Z20.822 Contact with and (suspected) exposure to COVID-19
CPT/HCPCS: 36415; 70450; 70496; 70498; 70553; 71045; 77003; 80053; 80307; 81001; 81003; 82140; 82565; 82947; 83520; 84443; 84484; 85025; 85610; 85730; 86225; 86255; 86256; 86592; 87070; 87389; 87799; 87811; 88108; 88313; 89050; 93005; 96361; 96374; 99285; A9577; G0480; J0133; J0696; J1165; J1200; J1650; J1953; J2765; J2930; J3370; J3411; J3475; J7030; J7040; Q9967